=== PATIENT | female | born 1955 | race Caucasian/White ===

== ENCOUNTER → 2022-01-22 14:09 | Outpatient (CLI) | payer OTHER, SELFPAY ==
--- NOTE | 2022-01-22 | DI.RAD.S_ITS ---
PROCEDURE: XR DEXA AXIAL SKELETON INDICATIONS: OSTEOPOROSIS SCREENING COMPARISON: None. FINDINGS: This blank DEXA report has been sent in error by the PACS system. The correct and complete report will be forthcoming in 1-2 days. Thank you for your patience and understanding. Dictated by: Geraldine Vasquez MD, PhD on 01/22/2022 at 17:48 Approved by: Geraldine Vasquez MD, PhD on 01/22/2022 at 17:48
== END ==
PROVIDERS: PCP Internal Medicine; Referring Provider Internal Medicine; Visit Provider Internal Medicine
DX: Z13.820 Encounter for screening for osteoporosis (principal); M85.852 Other specified disorders of bone density and structure, left thigh; Z78.0 Asymptomatic menopausal state
CPT/HCPCS: 77080

== ENCOUNTER 2023-09-17 17:47 | Emergency (ER) | payer OTHER, SELFPAY ==
[2023-09-17 18:05] VITALS: BP 107/53; PULSE 72; RESP 16; TEMP 36.6; O2SAT 100; BMI 19.7
--- NOTE | 2023-09-17 18:10 | DI.RAD.S_ITS ---
PROCEDURE: XR WRIST LT MIN 3V INDICATIONS: fall/pain TECHNIQUE: 4 views of the wrist were acquired. COMPARISON: [facility], CR, XR ELBOW LT MIN 3V, 09/17/2023, 18:15. [facility], CR, XR FOREARM LT 2V, 09/17/2023, 18:15. FINDINGS: Bones: There is a distal radius fracture, with impaction and comminution. There is moderate dorsal angulation of the distal fracture fragments. Intra-articular involvement can be seen. There is a mildly displaced ulnar styloid fracture. No definite carpal bone fracture can be seen. No lunate dislocation can be seen. No radiocarpal dislocation is seen. Degenerative changes are seen throughout, which are most prominent involving the 1st carpometacarpal joint. Milder degenerative changes are seen elsewhere. Scaphoid view: No navicular fractures are seen. Soft tissues: No suspicious soft tissue calcifications. IMPRESSION: Distal radius fracture, with impaction, comminution, intra-articular involvement, and moderate dorsal angulation. Dictated by: Jose Early M.D. on 09/17/2023 at 18:17 Approved by: Jose Early M.D. on 09/17/2023 at 18:18
--- NOTE | 2023-09-17 18:10 | DI.RAD.S_ITS ---
PROCEDURE: XR FOREARM LT 2V INDICATIONS: fall/pain TECHNIQUE: 2 views of the forearm were acquired. COMPARISON: [facility], CR, XR WRIST LT MIN 3V, 09/17/2023, 18:15. [facility], CR, XR ELBOW LT MIN 3V, 09/17/2023, 18:15. FINDINGS: Bones: There is an impacted, comminuted distal radius fracture, with intra-articular involvement. There is a minimally displaced ulnar styloid fracture seen. Degenerative changes are seen throughout, which are most prominent involving the 1st carpometacarpal joint. Milder degenerative changes are seen elsewhere. Soft tissues: No suspicious soft tissue calcifications or masses. IMPRESSION: Distal radius fracture, with impaction and intra-articular involvement. Mildly displaced ulnar styloid fracture. Dictated by: Jose Early M.D. on 09/17/2023 at 18:12 Approved by: Jose Early M.D. on 09/17/2023 at 18:16
--- NOTE | 2023-09-17 18:10 | DI.RAD.S_ITS ---
PROCEDURE: XR ELBOW LT MIN 3V INDICATIONS: fall/pain TECHNIQUE: 3 views of the elbow were acquired. COMPARISON: None. FINDINGS: Bones: No fractures or dislocations. No suspicious bony lesions. Soft tissues: No elbow joint effusion. No suspicious soft tissue calcifications. IMPRESSION: No displaced fractures are seen on these plain films. If there is focal tenderness, or other clinical concern for a fracture not seen on these images in this patient with a given history of trauma, please consider a dedicated CT or a short-term followup plain film series (in 1-2 weeks) for further evaluation. Dictated by: Jose Early M.D. on 09/17/2023 at 18:09 Approved by: Jose Early M.D. on 09/17/2023 at 18:12
--- NOTE | 2023-09-17 18:37 | ED_ITS ---
HPI - Extremity Injury (Upper) General Chief Complaint: Extremity Injury, Upper Stated Complaint: GLF. Left wrist injury Time Seen by Provider: 09/17/23 18:29 Source: patient Mode of arrival: Ambulatory History of Present Illness HPI narrative: 68-year-old female nonsmoker presents with her in the chief complaint of left wrist pain. She states that she was out walking and a dog startled her and she stumbled backwards falling on an outstretched left wrist. She now has significant pain and some deformity but denies numbness, tingling or weakness. She denies any head neck or back pain. She has no chest pain or shortness of breath. Related Data Previous Rx's Medication Instructions Recorded hydrocodone 5 mg-acetaminophen 325 1 tab PO Q4-6H PRN pain #10 tabs 09/17/23 mg tablet ondansetron 4 mg disintegrating 4 mg PO TID-QID PRN nausea and 09/17/23 tablet vomiting #10 tabs Allergies Allergy/AdvReac Type Severity Reaction Status Date / Time No Known Drug Allergies Allergy Verified 09/17/23 18:05 Review of Systems Review of Systems Narrative: GENERAL: Denies chills, fatigue, malaise, fever, sweats. HEENT: Denies sinus pain, ear pain, sore throat, difficulty swallowing, dizziness. RESPIRATORY: Denies dyspnea, cough, wheezing, hemoptysis, sputum. CARDIOVASCULAR: Denies chest pain, palpitations, orthopnea, edema, GASTROINTESTINAL: Denies nausea, vomiting, abdominal pain, diarrhea, constipation, melena. : Denies dysuria, frequency, incontinence, hematuria, urinary retention. MUSCULOSKELETAL: See HPI SKIN: Denies rash, skin lesions, or other NEUROLOGIC: Denies weakness, headache, numbness, change in speech, confusion, seizures, incoordination. PSYCHIATRIC: No concerning psychosocial issues. 12 point review of systems is negative except for those stated above Patient History Social History Smoking Status: Never smoker Smoking Status: Never smoker alcohol intake frequency: 0-2 drinks per day Substance Use Type: does not use Exam Narrative Exam Narrative: GENERAL: [68] year old patient appears stated age. Well-developed patient, in mild distress. HEAD: Atraumatic. Normocephalic. EYES: Pupils equal round and reactive. Extraocular motions intact. No scleral icterus. No injection or drainage. ENT: Nose without bleeding, purulent drainage. Throat without erythema, tonsill ar hypertrophy or exudate. Airway patent. NECK: Trachea midline. Non tender CARDIOVASCULAR: Regular rate and rhythm without murmurs, gallops, or rubs. RESPIRATORY: Clear to auscultation. Breath sounds equal bilaterally. No wheezes, rales, or rhonchi. GASTROINTESTINAL: Abdomen soft, non-tender, nondistended. EXTREMITIES: Deformity of left wrist consistent with fracture, this is closed, isolated and neurovascularly intact BACK: Nontender without deformity or crepitance. No flank tenderness. NEURO: AOx3. SKIN: No rash or erythema of visible areas Initial Vital Signs Initial Vital Signs: Vital Signs Temperature 98 F 09/17/23 18:05 Pulse Rate 72 09/17/23 18:05 Respiratory Rate 16 09/17/23 18:05 Blood Pressure 107/53 L 09/17/23 18:05 Pulse Oximetry 100 09/17/23 18:05 Oxygen Delivery Method Room Air 09/17/23 18:05 Procedures Nerve Block Nerve Block 1: Time out performed: Yes Local Anesthetic: lidocaine 1% Amount of anesthesia used (mL): 4 Side: left Nerve Blocks: hematoma block Procedure Successful: Yes Patient Tolerated Procedure: Well Complications: none Orthopedic Fracture Reduction Fracture #1: Time Out Performed: Yes Side: left Fracture Reduction Location: radius Analgesia: hematoma block Technique: direct manipulation and traction/counter-traction Post Reduction X-rays Demonstrate: acceptable reduction Post-reduction neuro exam: intact Post-reduction vascular exam: intact Splint Applied: Yes Patient Tolerated Procedure: Well Orthopedic Splinting/Casting Injury #1: Side: left Upper Extremity Injury Location: wrist Upper Extremity Immobilizer: sling/shoulder immobilizer and sugar tong splint Post splinting neuro exam: intact Post splinting vascular exam: intact Placed by: Provider Course Orders Ordered: ED Orders 09/17/23 18:10 XR elbow LT min 3V Stat XR forearm LT 2V Stat XR wrist LT min 3V Stat 09/17/23 19:52 XR wrist LT 2V Stat Discontinued Medications Hydrocodone Bitart/Acetaminophen (Hydrocodone/Acet 5/325 Prepack) 1 bottle MISC SEEINSTR ONE Stop: 09/17/23 19:53 Last Admin: 09/17/23 20:06 Dose: 1 bottle Documented By: Ondansetron HCl (Ondansetron 4 Mg Odt Prepack) 1 bottle MIS SEEINSTR ONE Stop: 09/17/23 19:53 Last Admin: 09/17/23 20:06 Dose: 1 bottle Documented By: Consultations Consultation #1: Patient's history and physical exam as well as imaging reviewed by on-call orthopedist, Dr. Holliday. We sure the opinion that attempts at closed reduction are reasonable but unlikely to have significant meaningful impact. Requests splint, sling and follow-up in the office Vital Signs Vital signs: Vital Signs - 8 hr 09/17/23 18:05 09/17/23 20:28 Temperature 98 F Pulse Rate 72 90 Respiratory Rate 16 16 Blood Pressure 107/53 L 147/66 H Pulse Oximetry 100 100 Oxygen Delivery Method Room Air Room Air MDM - Extremity Injury (Upper) MDM Narrative Medical decision making narrative: [68] year old patient presents with left wrist pain Multiple etiologies for patient's symptoms considered including, but not limited to: [Fracture versus dislocation versus other] Prior Charts reviewed in our EMR Primary Historian: patient Imaging reviewed: Distal radius fracture Consultations: Orthopedist, see details above Patient's symptoms improved over duration of stay with above-stated therapies. Hematoma block with near total improvement in pain control, minimal improvement in alignment after attempt at reduction, sugar-tong placed patient given return precautions Findings and discharge diagnosis discussed with patient/family followed by verbalization of understanding Return precautions discussed with patient/family whom verbalize understanding of diagnosis and plan Discharge Plan Departure Patient Disposition: Home Clinical Impression: Closed fracture of left distal radius Instructions: DI for Distal Radius Fracture Activity Restrictions/Additional Instructions: *You have been diagnosed with [Left distal radius fracture ] *What to do: *Please continue to take your regular medications as directed. [x ] New medication prescriptions sent to your pharmacy: [ [facility] in [place]] [ ] New medication written as a paper prescription [x] Tylenol and occasional Motrin for pain *Please follow up with [ Miya] of [facility] in 2-3 days, call for an appointment. Let them know you were seen in the Emergency Department and that we ask that you be seen in follow up. We will electronically transmit a record of today's note if your PCP is in our system *Return to Emergency Department if you should have any new, worsening or concerning symptoms, such as [worsening pain, significant swelling, cold extremities, numbness, tingling, weakness or other bothersome symptoms Splint Care: Keep splint clean and dry. Elevated affected body part to decrease swelling. OK to use ice pack on the affected body part. Use for 15-20 minutes each time, for 5-6x per day. If you develop worsening pain, numbness, tingling, discoloration of the affected body part, loosen the splint by loosening the SATNAM wrap, and either see your doctor for an urgent re-assessment, or return to the Emergency Department. Return to the Emergency Department for any new or worsening symptoms. You have been prescribed a short course of narcotic medications. These are potentially dangerous and addictive medications that should be used carefully. While on these medications you cannot drive or operate heavy machinery. Additionally, you cannot sign legal documents or perform any duties such as this. 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 Please understand that we cannot provide further refills of narcotics or controlled substances through the ED and your pain management will need to be through your Primary Care Provider Prescriptions: New hydrocodone-acetaminophen 5-325 mg tablet 1 tab PO Q4-6H PRN (Reason: pain) Qty: 10 0RF ondansetron 4 mg tablet,disintegrating 4 mg PO TID-QID PRN (Reason: nausea and vomiting) Qty: 10 0RF Referrals: Sebas Luna MD [Primary Care Provider] - Riley Holliday MD [Physician] - Stand Alone Forms: Patient Portal/API
--- NOTE | 2023-09-17 19:52 | DI.RAD.S_ITS ---
PROCEDURE: XR WRIST LT 2V INDICATIONS: post reduction left wrist TECHNIQUE: 2 views of the wrist were acquired. COMPARISON: [facility], , XR WRIST LT MIN 3V, 09/17/2023, 18:15. FINDINGS: Bones: Overlying casting material obscures fine bony detail. Similar alignment of previously demonstrated distal radius and ulnar styloid fractures. Soft tissues: No suspicious soft tissue calcifications. IMPRESSION: Similar alignment of distal radius and ulnar styloid fractures. Dictated by: Yuniel Green M.D. on 09/17/2023 at 20:07 Approved by: Yuniel Green M.D. on 09/17/2023 at 20:09
[2023-09-17] MEDS: HYDROCODONE/ACET 5/325 PREPACK 1 BOTTLE MISC (20:06)
[2023-09-17] MEDS: ONDANSETRON 4 MG ODT PREPACK 1 BOTTLE MISC (20:06)
[2023-09-17 20:28] VITALS: BP 147/66; PULSE 90; RESP 16; O2SAT 100
== END 2023-09-17 20:29 | disposition home or self-care (01) ==
PROVIDERS: Emergency Provider Emergency Medicine; PCP Internal Medicine
DX: S52.502A Unspecified fracture of the lower end of left radius, initial encounter for closed fracture (principal); W18.30XA Fall on same level, unspecified, initial encounter
CPT/HCPCS: 25605; 29125; 64450; 73080; 73090; 73100; 73110; 99284

== ENCOUNTER 2023-09-19 12:09 | Emergency (ER) | payer OTHER, SELFPAY ==
[2023-09-19 12:19] VITALS: BP 137/71; PULSE 86; RESP 16; TEMP 36.1; O2SAT 98; BMI 19.7
--- NOTE | 2023-09-19 12:53 | ED.EXTPRO ---
HPI - Extremity Problem <Olamide Dominguez PA-C - Last Filed: 09/19/23 14:12> General Chief complaint: Extremity Problem,Nontraumatic Stated complaint: lt arm temp cast irritation Time Seen by Provider: 09/19/23 12:23 Source: patient Mode of arrival: Ambulatory History of Present Illness HPI Narrative: 68-year-old female here in the ED for concerns with her temporary splint. She was seen here on 09/17 for a distal radius fracture. She had a closed reduction of the fracture and was placed in a sugar-tong splint. States that the splint has been placing an uncomfortable amount of pressure on her medial elbow and it is burning. She is here to have the splint checked to see if it is to be redone. She denies any numbness or tingling in the fingers and she is able to wiggle her fingers and denies any other concerns. She has follow up with ortho on Friday. Related Data Home Medications Medication Instructions Recorded Confirmed No Known Home Medications 12/08/19 12/08/19 Previous Rx's Medication Instructions Recorded hydrocodone 5 mg-acetaminophen 325 1 tab PO Q4-6H PRN pain #10 tabs 09/17/23 mg tablet ondansetron 4 mg disintegrating 4 mg PO TID-QID PRN nausea and 09/17/23 tablet vomiting #10 tabs Allergies Allergy/AdvReac Type Severity Reaction Status Date / Time No Known Drug Allergies Allergy Verified 09/18/23 07:54 Review of Systems <Olamide Dominguez PA-C - Last Filed: 09/19/23 14:12> Review of Systems ROS Unobtainable: All systems reviewed & are unremarkable except as noted in HPI and below Patient History <Olamide Dominguez PA-C - Last Filed: 09/19/23 14:12> Social History (System 09/18/23 @ 07:54 by Raeann Wade) Smoking Status: Never smoker Smoking Status: Never smoker alcohol intake frequency: 0-2 drinks per day Substance Use Type: does not use Exam <Olamide Dominguez PA-C - Last Filed: 09/19/23 14:12> Narrative Exam Narrative: GENERAL: [68] year old patient appears stated age. Well-developed patient, in no acute distress. HEAD: Atraumatic. Normocephalic. EYES: Pupils equal round and reactive. Extraocular motions intact. No scleral icterus. No injection or drainage. ENT: Nose without bleeding, purulent drainage. Airway patent. NECK: Trachea midline. Non tender RESPIRATORY: Respiratory rate and effort normal EXTREMITIES: Left forearm with splint intact. When splint removed, there is a erythematous indentation over the medial epicondyle of the left elbow indicating the splint was placing pressure in the area. Neurovascular intact NEURO: AOx3. SKIN: No rash or erythema of visible areas Initial Vital Signs Initial Vital Signs: Vital Signs Temperature 97.0 F L 09/19/23 12:19 Pulse Rate 86 09/19/23 12:19 Respiratory Rate 16 09/19/23 12:19 Blood Pressure 137/71 09/19/23 12:19 Pulse Oximetry 98 09/19/23 12:19 Oxygen Delivery Method Room Air 09/19/23 12:19 <Swati Silveira DO - Last Filed: 09/20/23 09:38> Initial Vital Signs Initial Vital Signs: Vital Signs Temperature 97.0 F L 09/19/23 12:19 Pulse Rate 86 09/19/23 12:19 Respiratory Rate 16 09/19/23 12:19 Blood Pressure 137/71 09/19/23 12:19 Pulse Oximetry 98 09/19/23 12:19 Oxygen Delivery Method Room Air 09/19/23 12:19 Procedures <Olamide Dominguez PA-C - Last Filed: 09/19/23 14:12> Orthopedic Splinting/Casting Injury #1: Time of procedure: 12:56 Upper Extremity Injury Location: wrist (Left wrist) Upper Extremity Immobilizer: sugar tong splint Post splinting neuro exam: intact Post splinting vascular exam: intact Placed by: Provider (Olamide Dominguez PA-C) Additional Comments: A new sugar-tong splint was placed to the left forearm with less molding around the elbow. CMS intact after application and patient tolerated well. Course <Olamide Dominguez PA-C - Last Filed: 09/19/23 14:12> Vital Signs Vital signs: Vital Signs - 8 hr 09/19/23 12:19 Temperature 97.0 F L Pulse Rate 86 Respiratory Rate 16 Blood Pressure 137/71 Pulse Oximetry 98 Oxygen Delivery Method Room Air <Swati Silveira DO - Last Filed: 09/20/23 09:38> Vital Signs Vital signs: Vital Signs - 8 hr 09/19/23 12:19 Temperature 97.0 F L Pulse Rate 86 Respiratory Rate 16 Blood Pressure 137/71 Pulse Oximetry 98 Oxygen Delivery Method Room Air MDM - Extremity (Nontraumatic) <Olamide Dominguez PA-C - Last Filed: 09/19/23 14:12> MDM Narrative Medical decision making narrative: 68-year-old female came into ED today because her sugar tong splint was applying an uncomfortable amount of pressure to her medial epicondyle area. When the splint was removed there was an erythematous indentation noted to the medial epicondyle and patient felt relief when the splint was removed. We decided to replace the sugar-tong splint with a new sugar-tong but with less molding around the elbow area. CMS intact after application and patient states that it feels better than it did before and does not feel the same burning and pressure on her elbow. Discharge Plan Departure Patient Disposition: Home Clinical Impression: Closed fracture of left distal radius Instructions: DI for Wrist Fracture Activity Restrictions/Additional Instructions: Please follow-up with orthopedics next week as scheduled. A new splint was placed under left forearm today. Please keep your arm in a sling as advised. Continue taking ibuprofen or Tylenol as needed for pain. Please follow-up if you have any additional concerns with your splint. Prescriptions: No Action No Known Home Medications hydrocodone-acetaminophen 5-325 mg tablet 1 tab PO Q4-6H PRN (Reason: pain) Qty: 10 0RF ondansetron 4 mg tablet,disintegrating 4 mg PO TID-QID PRN (Reason: nausea and vomiting) Qty: 10 0RF Referrals: Karlos Galaviz MD [Primary Care Provider] - Stand Alone Forms: Patient Portal/API ED Sign-out <Swati Silveira DO - Last Filed: 09/20/23 09:38> Cosign ED Attending Gavinoature Attestation: I was immediately available in the department for consultation. Documentation has been reviewed.
[2023-09-19 13:16] VITALS: BP 136/65; PULSE 89; RESP 16; TEMP 36.2; O2SAT 99
== END 2023-09-19 13:17 | disposition home or self-care (01) ==
PROVIDERS: Emergency Provider Physician Assistant; PCP Internal Medicine
DX: S52.502A Unspecified fracture of the lower end of left radius, initial encounter for closed fracture (principal)
CPT/HCPCS: 99281

== ENCOUNTER → 2023-12-25 14:17 | Outpatient (CLI) | payer OTHER, SELFPAY ==
[2023-12-25 15:19] LABS: Hematocrit 37.6 % (36-46); Hemoglobin 12.6 g/dL (12.0-16.0); Mean Corpuscular HGB Conc 33.5 % (30-36); Mean Corpuscular Hemoglobin 33.8 PG (26-34); Platelet Count 237 X10^3/uL (150-400); Red Blood Cell Count 3.73 X10^6/uL (4.0-5.2); Red Cell Distribution Width 12.8 % (11.6-14.8); White Blood Cell Count 3.5 X10^3/uL (4.5-11.0)
[2023-12-25 16:15] LABS: TSH w/ Reflex to FT4 1.33 uIU/mL (0.47-4.68)
[2023-12-25 16:22] LABS: Alanine Aminotransferase 18 IU/L (<35); Albumin 4.2 g/dL (3.5-5.0); Albumin Globulin Ratio 1.6 (1.0-2.8); Alkaline Phosphatase 55 U/L (38-126); Aspartate Aminotransferase 32 IU/L (14-36); BUN Creatinine Ratio 13.3 (6-22); Bilirubin Total 0.8 mg/dL (0.2-1.3); Blood Urea Nitrogen 8 mg/dL (7-17); Calcium 10.2 mg/dL (8.4-10.2); Carbon Dioxide 30 mmol/L (22-32); Chloride 101 mmol/L (98-107); Cholesterol 225 mg/dL (140-199); Estimated Glomerular Filt Rate > 60 mL/min (>60); Globulin 2.6 g/dL (1.7-4.1); Glucose 94 mg/dL (80-110); HDL Cholesterol 98 mg/dL (40-60); HEMOLYSIS < 15 (0-50); LDL Cholesterol Calculated 114 mg/dL (<100); Potassium 4.5 mmol/L (3.4-5.1); Sodium 136 mmol/L (137-145); Total Protein 6.8 g/dL (6.3-8.2); Triglycerides 67 mg/dL (35-150)
== END ==
LOC: LAB 14:18
PROVIDERS: PCP Internal Medicine; Referring Provider Internal Medicine; Visit Provider Internal Medicine
DX: M85.80 Other specified disorders of bone density and structure, unspecified site (principal); E78.2 Mixed hyperlipidemia
CPT/HCPCS: 36415; 80053; 80061; 84443; 85027

== ENCOUNTER → 2024-11-11 13:42 | Outpatient (CLI) | payer MEDICARE, SELFPAY ==
[2024-11-12 13:36] LABS: Fecal Immunochemical Test Negative (Negative)
== END ==
PROVIDERS: PCP Internal Medicine; Referring Provider Internal Medicine; Visit Provider Internal Medicine
DX: Z12.11 Encounter for screening for malignant neoplasm of colon (principal)
CPT/HCPCS: 82274

== ENCOUNTER → 2025-03-08 15:42 | Outpatient (CLI) | payer MEDICARE, SELFPAY ==
[2025-03-08 17:07] LABS: BUN Creatinine Ratio 14.7 (6-22); Blood Urea Nitrogen 10 mg/dL (7-17); Calcium 10.6 mg/dL (8.4-10.2); Carbon Dioxide 27 mmol/L (22-32); Chloride 103 mmol/L (98-107); Cholesterol 251 mg/dL (140-199); Estimated Glomerular Filt Rate > 60 mL/min (>60); Glucose 110 mg/dL (80-110); HDL Cholesterol 95 mg/dL (40-60); HEMOLYSIS < 15 (0-50); LDL Cholesterol Calculated 128 mg/dL (<100); Potassium 4.6 mmol/L (3.4-5.1); Sodium 137 mmol/L (137-145); Triglycerides 138 mg/dL (35-150)
== END ==
PROVIDERS: PCP Internal Medicine; Referring Provider Internal Medicine; Visit Provider Internal Medicine
DX: E78.2 Mixed hyperlipidemia (principal)
CPT/HCPCS: 36415; 80048; 80061